=== PATIENT | female | born 1945 | race Caucasian/White ===

== ENCOUNTER 2018-06-10 20:50 | Observation (INO) ==
[2018-06-10] MEDS ORDERED: MAGNESIUM SULF RIDER 4 GM in PREMIX 1 EACH IV PRN (20:58)
[2018-06-10] MEDS ORDERED: ACETAMINOPHEN 325 MG TABLET PO PRN (20:58)
[2018-06-10] MEDS ORDERED: ZALEPLON 5 MG CAPSULE PO PRN (20:58)
[2018-06-10] MEDS ORDERED: POTASSIUM CHLORIDE 20 MEQ TABLET PO PRN (20:58)
[2018-06-10] MEDS ORDERED: ONDANSETRON 4 MG/2 ML VIAL IV PRN (20:58)
[2018-06-10] MEDS ORDERED: MAGNESIUM SULF RIDER 2 GM in PREMIX 1 EACH IV PRN (20:58)
[2018-06-10] MEDS ORDERED: POTASSIUM CHLORIDE 20 MEQ/15 ML UDCUP PER TUBE PRN (20:58)
[2018-06-10] MEDS ORDERED: NITROGLYCERIN SL 0.4 MG TABLET SL PRN (21:08)
[2018-06-10] MEDS ORDERED: hydrALAZINE 20 MG/1 ML VIAL IV PRN (21:09)
[2018-06-10 23:15] LABS: Troponin I 0.632 NG/ML (0.00-0.045)
[2018-06-11 01:26] LABS: Troponin I 0.746 NG/ML (0.00-0.045)
[2018-06-11 05:35] LABS: Basophils # 0.1 10*3/uL (0.0-0.2); Basophils % 0.8 % (0.0-0.8); Eosinophils # 0.3 10*3/uL (0.0-0.87); Eosinophils % 4.4 % (0.00-10.9); Hematocrit 38.4 VOL% (35.7-47.0); Hemoglobin 12.1 GM/DL (12.0-16.0); Immature Granulocytes % 0.1 %; Immature Granulocytes Absolute 0.01 #; Lymphocytes # 3.7 10*3/uL (1.4-4.0); Lymphocytes % 48.3 % (21.3-54.2); Mean Corpuscular HGB Conc 31.5 GM/DL (32-36); Mean Corpuscular Hemoglobin 27 PG (27-34); Mean Corpuscular Volume 87.1 FL (87-102); Mean Platelet Volume 9.8 FL (9.6-12.0); Monocytes # 0.7 10*3/uL (0.11-0.8); Monocytes % 9.2 % (1.7-12.7); Neutrophils # 2.9 10*3/uL (1.4-7.4); Neutrophils % 37.2 % (38.7-73.9); Platelet Count 278 T/CUMM (130-400); Red Blood Count 4.41 MC/CUMM (3.8-5.5); Red Cell Distribution Width 13.4 % (9.3-17.3); White Blood Count 7.7 T/CUMM (4-12)
[2018-06-11 05:58] LABS: Calcium 9.1 MG/DL (8.5-10.1); Osmolality,Calculated 286.1 MOS/KG (273-304); Potassium 3.6 MMOL/L (3.5-5.1); Risk Ratio 7.05; Thyroid Stimulating Hormone 3.17 uIU/ml (0.358-3.74); VLDL CHOLESTEROL 34.6 MG/DL
[2018-06-11 06:08] LABS: Eosinophils 5 % (0-10); Lymphocytes 47 % (20-55); Segmented Neutrophils 33 % (50-85); Total Cells Counted 100
[2018-06-11 06:09] LABS: Hypochromasia Slight; Platelet Estimate Normal
[2018-06-11] MEDS: PANTOPRAZOLE 40 MG TABLET PO SCH (08:25)
[2018-06-11] MEDS ORDERED: NITROGLYCERIN 2% OINT 1 INCH/GM PACK TOP ONE (08:27)
[2018-06-11] MEDS ORDERED: ENOXAPARIN 30 MG/0.3 ML SYRINGE SUBCUT SCH (09:00)
[2018-06-11] MEDS: ASPIRIN EC 81 MG TABLET PO SCH (09:11)
[2018-06-11] MEDS ORDERED: ASPIRIN 325 MG TABLET PO ONE (10:20)
[2018-06-11] MEDS ORDERED: diphenhydrAMINE CAP 25 MG CAPSULE PO ONE (10:20)
[2018-06-11] MEDS ORDERED: POTASSIUM CHLORIDE RIDER 10 MEQ in PREMIX 1 EACH IV PRN (10:20)
[2018-06-11] MEDS ORDERED: DIAZEPAM 5 MG TABLET PO ONE (10:20)
[2018-06-11] MEDS ORDERED: MAGNESIUM SULF RIDER 2 GM in PREMIX 1 EACH IV PRN (10:20)
[2018-06-11] MEDS: SODIUM CHLORIDE 0.45% 1,000 ML IV SCH (12:24)
[2018-06-11] MEDS ORDERED: MIDAZOLAM 2 MG/2 ML VIAL ONE ×2 (13:00→13:28)
[2018-06-11] MEDS ORDERED: fentaNYL 100 MCG/2 ML VIAL ONE (13:00)
[2018-06-11] MEDS ORDERED: VERAPAMIL 5 MG/2 ML VIAL ONE (13:00)
[2018-06-11] MEDS ORDERED: LIDOCAINE 1% 20 ML VIAL ONE (13:00)
[2018-06-11] MEDS ORDERED: NITROGLYCERIN DRIP 50 MG/250 ML BOTTLE IV ONE (13:00)
[2018-06-11] MEDS ORDERED: ENOXAPARIN 60 MG/0.6 ML SYRINGE ONE (13:17)
[2018-06-11] MEDS ORDERED: EPTIFIBATIDE 20,000 MCG/10 ML VIAL ONE (13:26)
[2018-06-11] MEDS ORDERED: EPTIFIBATIDE 75 MG/100 ML BOTTLE IV SCH (13:33)
[2018-06-11] MEDS ORDERED: TICAGRELOR 90 MG TABLET ONE (13:51)
[2018-06-11] MEDS ORDERED: EPTIFIBATIDE 75 MG/100 ML BOTTLE IV ONE (13:52)
[2018-06-11 14:48] LABS: Apearance,Urine CLEAR (Clear); Bacteria,Urine Few /HPF (Few); Bilirubin,Urine Negative (Negative); Blood, Urine Negative (Negative); Glucose,Urine (UA) Negative (Negative); Ketones,Urine Negative (Negative); Mucus,Urine Occasional /LPF (Occasional); Nitrite,Urine Negative (Negative); Protein,Urine Negative; RBC,Urine 2 /HPF (0-4); Renal Epithelial Cells,Urine Occasional /HPF (<1); Squamous Epithelial Cell,Urine Occasional /HPF (0-10); Urine Color Yellow (Yellow); Urine Specific Gravity 1.011 (1.001-1.035); Urine Urobilinogen < 2.0 EU/DL (0.2-1.0); WBC,Urine 9 /HPF (0-6)
[2018-06-11] MEDS: LOSARTAN 50 MG TABLET PO SCH (14:51)
[2018-06-11] MEDS: hydroCHLOROthiazide 25 MG TABLET PO SCH (14:51)
[2018-06-11] MEDS ORDERED: ATORVASTATIN 40 MG TABLET PO SCH (21:00)
[2018-06-11] MEDS ORDERED: ATORVASTATIN 80 MG TABLET PO SCH (21:00)
[2018-06-11] MEDS: TICAGRELOR 90 MG TABLET PO SCH (21:52)
[2018-06-12 06:06] LABS: Basophils # 0.1 10*3/uL (0.0-0.2); Basophils % 0.9 % (0.0-0.8); Eosinophils # 0.3 10*3/uL (0.0-0.87); Eosinophils % 3.8 % (0.00-10.9); Hematocrit 39.1 VOL% (35.7-47.0); Hemoglobin 12.4 GM/DL (12.0-16.0); Immature Granulocytes % 0.3 %; Immature Granulocytes Absolute 0.02 #; Lymphocytes # 2.4 10*3/uL (1.4-4.0); Lymphocytes % 30.7 % (21.3-54.2); Mean Corpuscular HGB Conc 31.7 GM/DL (32-36); Mean Corpuscular Hemoglobin 27 PG (27-34); Mean Corpuscular Volume 86.1 FL (87-102); Mean Platelet Volume 10.1 FL (9.6-12.0); Monocytes # 0.8 10*3/uL (0.11-0.8); Monocytes % 9.4 % (1.7-12.7); Neutrophils # 4.4 10*3/uL (1.4-7.4); Neutrophils % 54.9 % (38.7-73.9); Platelet Count 296 T/CUMM (130-400); Red Blood Count 4.54 MC/CUMM (3.8-5.5); Red Cell Distribution Width 13.3 % (9.3-17.3); White Blood Count 7.9 T/CUMM (4-12)
[2018-06-12 06:24] LABS: Calcium 9.3 MG/DL (8.5-10.1); Osmolality,Calculated 279.5 MOS/KG (273-304); Potassium 3.4 MMOL/L (3.5-5.1)
[2018-06-12 06:38] LABS: Troponin I 0.964 NG/ML (0.00-0.045)
[2018-06-12 07:46] VITALS: BP 134/64
[2018-06-12] MEDS ORDERED: NON-FORMULARY MEDICATION (Omeprazole [Omeprazole] 40 MG) PO SCH (09:00)
[2018-06-12] MEDS ORDERED: POTASSIUM CHLORIDE 20 MEQ TABLET PO ONE (09:30)
[2018-06-12] MEDS: TICAGRELOR 90 MG TABLET PO SCH (09:56)
[2018-06-12] MEDS: ASPIRIN EC 81 MG TABLET PO SCH (09:56)
[2018-06-12] MEDS: PANTOPRAZOLE 40 MG TABLET PO SCH (09:58)
[2018-06-12] MEDS: LOSARTAN 50 MG TABLET PO SCH (09:58)
[2018-06-12] MEDS: hydroCHLOROthiazide 25 MG TABLET PO SCH (09:58)
[2018-06-12] MEDS: SODIUM CHLORIDE 0.45% 1,000 ML IV SCH (11:08)
== END 2018-06-12 11:30 | disposition home or self-care (01) ==
LOC: N.TELES
PROVIDERS: ADMIT Internal Medicine Cardiovascular Disease; ATTEND Internal Medicine Cardiovascular Disease
PROC: CLCCHCL (ICD-10-PCS; 2018-06-11 14:45)